=== PATIENT | male | born 1975 | race Hispanic/Latino ===

== ENCOUNTER 2025-04-13 08:29 | Emergency (ER) | payer SELFPAY ==
[2025-04-13] MEDS ORDERED: Ondansetron PF 4 MG/2 ML Vial ONE (08:36)
[2025-04-13] MEDS ORDERED: diphenhydrAMINE 50 MG/ML VIAL ONE (08:45)
[2025-04-13] MEDS ORDERED: Famotidine/PF 20 mg/2ml Vial ONE (08:45)
== END 2025-04-13 11:58 | disposition home or self-care (01) ==
LOC: NAV ERS 08:29
DX: T78.19XA Other adverse food reactions, not elsewhere classified, initial encounter (principal); I10 Essential (primary) hypertension; Z79.899 Other long term (current) drug therapy
CPT/HCPCS: 94760; 96374; 96375; J1200; J1308; J2405; J2919; J7030